=== PATIENT | male | born 1985 | race Caucasian/White ===

== ENCOUNTER 2017-01-22 11:15 | Emergency (ER) | payer OTHER ==
[~2017-01-22] VITALS: Ht 170.2 cm; Wt 75.8 kg
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
[2017-01-22 11:20] VITALS: Ht 170.2 cm; Wt 75.8 kg
[2017-01-22] MEDS ORDERED: NO ROUTINE MEDS (11:30)
--- NOTE | 2017-01-22 12:18 | NUR ---
ROOM CHANGE MOVED TO [facility]
--- NOTE | 2017-01-22 12:59 | NUR ---
DR GANNON AT BEDSIDE
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
--- NOTE | 2017-01-22 13:29 | NUR ---
RETURNED FROM [facility]
--- NOTE | 2017-01-22 13:49 | NUR ---
REPORT TO YOSI STEVENSON
[2017-01-22] MEDS ORDERED: MELO15TA12 PO (14:04)
[2017-01-22] MEDS ORDERED: METH-310 PO (14:04)
[2017-01-22] MEDS ORDERED: PRED10TA PO (14:04)
[2017-01-22 14:16] VITALS: BP 121/72; PULSE 75; RESP 16; TEMP 98.4; O2SAT 98
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
== END 2017-01-22 14:16 | disposition home or self-care (01) ==
LOC: ED 11:15
DX: S83.92XA Sprain of unspecified site of left knee, initial encounter (principal); V03.00XA Pedestrian on foot injured in collision with car, pick-up truck or van in nontraffic accident, initial encounter; Y93.89 Activity, other specified; Y92.9 Unspecified place or not applicable; Y99.8 Other external cause status

== ENCOUNTER 2017-03-15 09:29 | Emergency (ER) | payer SELFPAY ==
[~2017-03-15] VITALS: Ht 170.2 cm; Wt 80.5 kg
[~2017-03-15 09:29] MED LIST: MELO15TA12 PO; METH-310 PO; NO ROUTINE MEDS; PRED10TA PO
[2017-03-15 09:33] VITALS: Ht 170.2 cm; Wt 80.5 kg
--- OUTSIDE RECORDS SUMMARY | 2017-03-15 09:34 | XMS REPORT | Continuity of Care Document ---
Author Author [facility] Organization [facility] Address Unknown Phone Unavailable Allergies Active Description [...] Status Pt. Type Provider Facility Loc./Unit Complaint [id number] 09/30/2013 19:45:00 2012 21:56:00 DIS Emergency Mark RIZO, Christian Elmore [facility] on [address]
--- OUTSIDE RECORDS SUMMARY | 2017-03-15 09:34 | XMS REPORT | Continuity of Care Document ---
Author Author [facility] Organization [facility] Address Unknown Phone Unavailable Support Name Relationship Address Phone LEXI GANNON MD Caregiver [address] [place] [id number] Unavailable DAILY, KIRK Next Of Kin [address] [place] [address] Insurance Providers Guarantor Umesh Palomares Address [address] [place] [id number] Email DENIED 17 Payer Auto A Insurance Subscriber's Name Umesh Palomares Relationship 18 Self Chief Complaint and Reason for Visit Chief Complaint Lower Extremity Pain Reason for Visit Sprain of left knee Problems Past Problems Medical Problem Onset Date Sprain of left knee Unknown Medications Current Home Medications Medication Dose Units Route Directions Days Qty Instructions Start Date Meloxicam (Mobic) 15 Mg Tablet 1 Tab Oral Daily 30 Tablet 01/22/17 Methocarbamol (Robaxin-750) 750 Mg Tablet 750 Mg Oral Four Times Daily 30 Tablet Take 1 tablet, by mouth, 4 times a day. 01/22/17 No Routine Meds 01/22/17 Prednisone 10 Mg Tablet 0 Oral Taper Qd 18 Tablet 30 mg daily x3 days 20 mg daily x3 days 10 mg daily x2 days 01/22/17 Social History Social History Problem Response Recorded Date/Time Onset Date Status Hx Alcohol Use Yes 01/22/2017 11:20am Not Applicable Not Applicable Query Response Start Date Stop Date Smoking Status Current every day smoker Hospital Discharge Instructions No hospital discharge instructions. Plan of Care Discharge Date 01/22/17 2:16pm Disposition 01 DISCHARGED HOME, SELF-CARE Condition at Discharge Improved Instructions/Education Provided Leg Pain (ED) Prescriptions See Medication Section Additional Instructions/Education Robaxin 750 mg 4 times a day when necessary knee pain. Mobic 15 mg daily Prednisone 10 mg tabs 3 tabs daily for 3 days, 2 tabs daily for 3 days, 1 tablet daily for 3 days. Functional Status No functional status results. Allergies, Adverse Reactions, Alerts No allergy information available. Immunizations Query Response on File Recorded Date/Time Influenza Vaccine Hx no 01/22/17 2:00pm Vital Signs Acute Vital Signs Vital Response Date/Time Temperature (Fahrenheit) 98.4 deg F (96.8 - 99.1) 01/22/2017 2:16pm Temperature (Calculated Celsius) 36.22391 degrees C (36.0 - 37.3) 01/22/2017 2:16pm Pulse Rate (adult) 75 bpm (60 - 100) 01/22/2017 2:16pm Respiratory Rate 16 breaths/min (10 - 20) 01/22/2017 2:16pm O2 Sat by Pulse Oximetry 98 % (90 - 100) 01/22/2017 2:16pm Blood Pressure 121/72 mm Hg 01/22/2017 2:16pm Height (Feet) 5 feet 01/22/2017 11:20am Height (Inches) 7.00 inches 01/22/2017 11:20am Weight (Kilograms) 75.800 kg 01/22/2017 11:20am Body Mass Index (BMI) 26.0 01/22/2017 11:20am Results No known relevant diagnostic tests, laboratory data and/or discharge summary. Procedures No known history of procedures. Encounters Encounter Location Arrival/Admit Date Discharge/Depart Date Attending Provider Departed Emergency Room [facility] 01/22/17 11:15am 01/22/17 2: 16pm LEXI GANNON MD Recent Diagnosis
--- NOTE | 2017-03-15 10:20 | NUR ---
PHYSICIAN DR. ZAMARRIPA AT BEDSIDE TO EXAMINE Pt.
--- NOTE | 2017-03-15 10:30 | NUR ---
CARE UPDATE Pt STATES THAT HE DOES NOT WANT THE LAB WORK AND FLUIDS FOR HIS ABDOMINAL ISSUES DONE TODAY IT WILL TAKE TOO MUCH TIME. HE DOES WANT THE PAIN MEDS AND ABX FOR HIS TOOTH THOUGH. DR. ZAMARRIPA NOTIFIED AND WENT TO SPEAK WITH Pt.
[2017-03-15] MEDS ORDERED: NORMAL SALINE 1,000 ML IV ONE (10:37)
--- NOTE | 2017-03-15 10:46 | ERPDOC ---
Departure Disposition Decision Date: March 15, 2017 Disposition Decision Time: 10:43 Disposition: 01 DISCHARGED HOME, SELF-CARE Impression Impression Impression: Primary Impression: Pain, dental Severity: Moderate Condition: Stable Seen By: Physician only Referrals: [facility] Patient Instructions: Dental Abscess (ED), Dental Caries (ED), Toothache (ED) Problems/Meds/Labs Reviewed?: Yes Medications reviewed and manag: Yes Follow up care ordered?: Yes Mental Status: Alert, Oriented Scripts Amoxicillin (Amoxicillin) 500 Mg Capsule 1 CAP PO Q8H for DENTAL PAIN for 10 Days, #30 CAP 0 Refills Prov: FAMILIA ZAMARRIPA DO 03/15/17 Ondansetron (Zofran Odt) 4 Mg Tab.rapdis 4 MG PO Q4HR for NAUSEA, #12 TAB 0 Refills Oral Disintegrating Tablet Prov: FAMILIA ZAMARRIPA DO 03/15/17 Ibuprofen (Ibuprofen) 800 Mg Tablet 1 TAB PO Q8H Y for PAIN, #10 TAB 0 Refills Prov: FAMILIA ZAMARRIPA DO 03/15/17 HPI General Chief Complaint: Toothache Stated Complaint: ABCESS TOOTH, N/V Time Seen by Provider: 10:37 Source: patient (Patient presents to the ER with dental pain, No Trusmus, approx tooth number 3 or 4. Several teeth are missing and in various stages of decay), other (Patient also reports a 1-2 year complaint of Abdominal pain and intermittently blood tinged stools) Exam Limitations: no limitations HPI Dental Occurred At: home Onset: Changing over time Duration: 1 week Pain Scale: Now & Worst: 7/10 Severity: moderate Location: R upper Problem: other Associated Symptoms: cheek swelling, fever, gum swelling, nausea, other, DENIES : cough, dental trauma, diarrhea, drooling, dyspnea, facial swelling, fractured tooth, gum laceration, headache, high pitched cry/voice, hoarseness, impacted tooth, loose tooth, retained foreign body, rhinorrhea, sinus drainage, sinus pain, trouble chewing, trouble swallowing, vomiting Allergies: Coded Allergies: No Known Allergies (Unverified , 03/15/17) Past History Past Medical History Pt denies signifigant PMH Hx Echocardiogram: No Surgical History Denies Surgeries Family History Family PMH: FOUND: hypertension Social History Smoking Status: Unknown if ever smoked Substance Use Type: former substance user Alcohol Intake: none Sexuality: female partner Housing: house Service: No Current Occupational Status: employed Occupational Hazard: No Advance Directives: Yes Full Code Record Review Pertinent history updated: Yes Review of Systems Constitutional Constitutional: fever, DENIES: chills Eyes Lids/Accessories: DENIES: erythema, swelling ENMT Ears: DENIES: erythema, pain Balance: DENIES: ataxia, vertigo Sinuses: DENIES: congestion, rhinorrhea Mouth/Throat: DENIES: sore throat Cardiovascular Cardiac: DENIES: chest pain, dyspnea on exertion, orthopnea Rhythm/Rate: DENIES: tachycardia Pulmonary Respiratory: DENIES: cough, dyspnea GI Upper Abdomen: nausea, pain, DENIES: vomiting Lower Abdomen: blood in stool, pain, DENIES: constipation, diarrhea General: DENIES: dysuria Musculoskeletal General: DENIES: cramps, pain, weakness Integumentary Skin: DENIES: color change, itching, rash Neurological General: DENIES: ataxia, change in strength, headache, numbness, poor coordination, seizures, syncope, vertigo, weakness Psychiatric Psychiatric: DENIES: anxiety, depression, nervousness Hematologic/Lymphatic Hematologic/Lymphatic: DENIES: anemia Allergic/Immunological Allergic/Immunoligical: DENIES: sneezing All other Systems All Other Systems: Reviewed and Negative Exam General General Nourishment: well nourished, well developed, appears stated age, adult General Body Habitus: well groomed Vital Signs: RN Vital Signs have been reviewed: Yes, Temperature: 99.1, Source : Oral, Heart Rate: 90, Respiratory Rate: 16, BP: 130/74, Pulse Oximetry: 95 Height (Feet): 5 Height (Inches): 7.00 [place] Dental Face: NOT FOUND: asymmetry, bruising, erythema, numbness, swelling, tender, weakness Jaw: NOT FOUND: asymmetry, trismus Glands: NOT FOUND: L parotid swollen, L submandibular swollen, R parotid swollen, R submandibular swollen Ducts: NOT FOUND: L Stensen's blocked, L Stensen's inflamed, L Silverthorne's blocked, L Roney's inflamed, R Stensen's blocked, R Stensen's inflamed, R Roney's blocked, R Roney's inflamed Lips: NOT FOUDN: laceration, numbness, swelling, weakness Gums: moist, pink, swelling, NOT FOUND: exudate, lesion Tongue: NOT FOUND: geographic, strawberry, swelling, ulcers Teeth: caries, missing, NOT FOUND: crowns, dentures, implants Pharynx: NOT FOUND: cobblestoning, erythema, exudate, lateral pillar signs, swelling, uvular deviation Tonsils: 1+, NOT FOUND: erythema, exudate Neck: NOT FOUND: L anterior adenopathy, L posterior adenopathy, R anterior adenopathy, R posterior adenopathy Skin: NOT FOUND: ecchymosis, rash Eyes (brief) Eyes Brief: found: EOMI, PERRL ENMT (brief) ENMT: FOUND: TM clear, TM good light reflex, mucosa moist Neck (brief) Neck Brief: FOUND: trachea midline, NOT FOUND: adenopathy, nuchal rigidity, tenderness, tracheal deviation Respiratory (brief) Respiratory Brief: FOUND: clear all ferguson, equal bilaterally Cardiovascular (brief) Cardiac Brief: FOUND: regular rate, regular rhythm Capillary Refill: <2 sec Abdomen Inspection: NOT FOUND: distention Palpation: FOUND: soft, tender (Mild diffuse tenderness for 1-2 years), NOT FOUND: McBurney's point tender, Munoz's sign, Obturator sign, Psoas sign, Rosving's sign, hepatomegaly, involuntary guarding, pulsating mass, rebound, splenomegaly, voluntary guarding Auscultation: FOUND: normoactive Musculoskeletal (brief) Musculoskeletal Brief: NOT FOUND: spasm, tenderness Integumentary (brief) Integumentary Brief: FOUND: pink, warm Neurologic (brief) Neurological Brief: FOUND: CN w/o gross def to obs, gait w/o gross def to obs, motor-no gross deficits, sensory-no gross deficits, NOT FOUND: ataxia Neurologic RN Documented GCS Eye Opening: Verbal: Motor: Total: Psychiatric (brief) Psychiatric Brief: FOUND: alert, attentive, normal affect, oriented Differential Diagnoses Considering: Gingival Abscess, Peritonsillar Abscess, Retropharyngeal Abscess, Caries, Dry Socket, Epiglottitis, Retained Foreign Body, Gingivitis, Impacted Tooth, Laceration, Lost Filling, Tyson's Angina, Pharyngitis Strep, Sinusitis, Tooth Avulsion/Extrusion, Tooth Fracture, Vincent's Angina Progress Results/Orders Orders Procedure Category Date Status Time Normal Saline (Normal PHA 03/15/17 Complete Saline Iv) 10:37 Ondansetron Odt PHA 03/15/17 Complete (Zofran Odt) 11:00 Ketorolac (Toradol) PHA 03/15/17 Complete 11:00 Amoxicillin (Amoxil) PHA 03/15/17 Complete 11:00 Medications Current ED Medications Sodium Chloride (Normal Saline IV) 1,000 ml @ 0 mls/hr Q0M ONCE IV ; Start 03/15 at 10:37; Stop 03/15/17 at 10:55; Status DC Ondansetron HCl (Zofran Odt) 4 mg O ONCE PO Last administered on 03/15/17 11: 09; Start 03/15/17 at 11:00; Stop 03/15/17 at 11:01; Status DC Ketorolac Tromethamine (Toradol) 60 mg O ONCE IM Last administered on 11:10; Start 03/15/17 at 11:00; Stop 03/15/17 at 11:01; Status DC Amoxicillin (Amoxil) 500 mg O ONCE PO Last administered on 03/15/17 11:09; Start 03/15/17 at 11:00; Stop 03/15/17 at 11:01; Status DC Progress Progress I recommended, but the patient refused labs, Imaging and IV Fluid or IV ABX in the ER Patient will attempt to establish with a local physician and Dentist, but the patient refused FAMILIA ZAMARRIPA DO March 15, 2017 10:46
--- OUTSIDE RECORDS SUMMARY | 2017-03-15 10:47 | XMS REPORT | Continuity of Care Document ---
Author Author [facility] Organization [facility] Address Unknown Phone Unavailable Allergies Active Description [...] Status Pt. Type Provider Facility Loc./Unit Complaint [id number] 09/30/2013 19:45:00 2012 21:56:00 DIS Emergency Mark RIZO, Christian Elmore [facility] on [address]
[2017-03-15] MEDS ORDERED: ONDA4TAB7 PO (10:50)
[2017-03-15] MEDS ORDERED: AMOX500C2 PO (10:50)
[2017-03-15] MEDS ORDERED: IBUP-1547 PO (10:50)
[2017-03-15] MEDS ORDERED: ONDANSETRON ODT 4 MG TAB PO ONE (11:00)
[2017-03-15] MEDS ORDERED: AMOXICILLIN 500 MG CAPSULE PO ONE (11:00)
[2017-03-15] MEDS ORDERED: KETOROLAC 60mg/2ml INJECTION IM ONE (11:00)
[2017-03-15 11:29] VITALS: BP 129/70; PULSE 79; RESP 16; TEMP 98.3; O2SAT 96
--- NOTE | 2017-03-15 11:29 | NUR ---
DEPART Pt EDUCATION REGARDING AMOXICILLIN, ZOFRAN ODT, IBUPROFEN, AND F/U WITH DENTAL REVIEWED WITH Pt. QUESTIONS ANSWERED, Pt LEFT ED AMBULATORY WITH FAMILY.
== END 2017-03-15 11:29 | disposition home or self-care (01) ==
LOC: ED 09:29
DX: K08.89 Other specified disorders of teeth and supporting structures (principal); K92.1 Melena; R10.30 Lower abdominal pain, unspecified; R10.10 Upper abdominal pain, unspecified
CPT/HCPCS: 96372